=== PATIENT | male | born 1950 | race African-American/Black ===

== ENCOUNTER 2017-05-23 09:49 | Inpatient (IN) ==
[2017-05-23] MEDS ORDERED: DEXAMETHASONE 10 MG/1 ML VIAL ONE (10:12)
[2017-05-23] MEDS ORDERED: DEXAMETHASONE 4 MG/1 ML VIAL IV STA (10:18)
[2017-05-23] MEDS ORDERED: PHENYTOIN INJ 1,000 MG in SODIUM CHLORIDE 0.9% 100 ML IV STA (10:29)
[2017-05-23 10:32] LABS: Basophils # 0.1 10*3/uL (0.0-0.2); Basophils % 0.9 % (0.0-0.8); Eosinophils # 0.3 10*3/uL (0.0-0.87); Eosinophils % 4.4 % (0.00-10.9); Hematocrit 32.7 VOL% (42.0-52.0); Hemoglobin 10.9 GM/DL (14.0-18.0); Immature Granulocytes % 0.3 %; Immature Granulocytes Absolute 0.02 #; Lymphocytes # 1.3 10*3/uL (1.4-4.0); Lymphocytes % 19.9 % (21.2-54.2); Mean Corpuscular HGB Conc 33.3 GM/DL (32-36); Mean Corpuscular Hemoglobin 33 PG (27-34); Mean Corpuscular Volume 97.6 FL (87-102); Mean Platelet Volume 10.5 FL (9.6-12.0); Monocytes # 0.7 10*3/uL (0.11-0.8); Monocytes % 10.3 % (1.7-12.7); Neutrophils # 4.1 10*3/uL (1.4-7.4); Neutrophils % 64.2 % (38.7-73.9); Platelet Count 217 T/CUMM (130-400); Red Blood Count 3.35 MC/CUMM (3.8-5.5); Red Cell Distribution Width 14.2 % (9.3-17.3); White Blood Count 6.3 T/CUMM (4-12)
[2017-05-23 10:43] LABS: INR 1.4; PT Patient Result 14.4 SECS; Partial Thromboplastin Time 28.8 SECS (0-40)
[2017-05-23 11:07] LABS: Calcium 8.9 MG/DL (8.5-10.1); Osmolality,Calculated 280.4 MOS/KG (273-304); Potassium 4.4 MMOL/L (3.5-5.1)
[2017-05-23] MEDS ORDERED: ALUMINUM/MAGNES/SIMETH MAX STR 30 ML UDCUP PO PRN ×2 (12:13→14:09)
[2017-05-23] MEDS ORDERED: traMADol 50 MG TABLET PO PRN ×2 (12:13→14:09)
[2017-05-23] MEDS ORDERED: MYLANTA/LIDO VISC 2:1 300 ML BOTTLE SWISH/SPIT PRN ×2 (12:13→14:09)
[2017-05-23] MEDS ORDERED: ONDANSETRON 4 MG/2 ML VIAL IV PRN ×2 (12:13→14:09)
[2017-05-23] MEDS ORDERED: chlorproMAZINE 25 MG TABLET PO PRN ×2 (12:13→14:09)
[2017-05-23] MEDS ORDERED: ALPRAZolam 0.25 MG TABLET PO PRN ×2 (12:13→14:09)
[2017-05-23] MEDS ORDERED: LACTULOSE 20 GM/30 ML UDCUP PO PRN ×2 (12:13→14:09)
[2017-05-23] MEDS ORDERED: PROMETHAZINE INJ 25 MG in SODIUM CHLORIDE 0.9% 50 ML IV PRN ×2 (12:13→14:09)
[2017-05-23] MEDS ORDERED: TEMAZEPAM 7.5 MG CAPSULE PO PRN ×2 (12:13→14:09)
[2017-05-23] MEDS ORDERED: MAGNESIUM HYDROXIDE SUSP 30 ML UDCUP PO PRN ×2 (12:13→14:09)
[2017-05-23] MEDS ORDERED: MYLANTA/LIDO VISC 2:1 300 ML BOTTLE SWISH/SWAL PRN ×2 (12:13→14:09)
[2017-05-23] MEDS ORDERED: BENZTROPINE 2 MG/2 ML AMP IV PRN ×2 (12:13→14:09)
[2017-05-23] MEDS ORDERED: diphenhydrAMINE CAP 25 MG CAPSULE PO PRN ×2 (12:13→14:09)
[2017-05-23] MEDS ORDERED: chlorproMAZINE INJ 25 MG in SODIUM CHLORIDE 0.9% 100 ML IV PRN ×2 (12:13→14:09)
[2017-05-23] MEDS ORDERED: ACETAMINOPHEN 325 MG TABLET PO PRN ×2 (12:13→14:09)
[2017-05-23] MEDS ORDERED: chlorproMAZINE INJ 50 MG in SODIUM CHLORIDE 0.9% 100 ML IV PRN ×2 (12:13→14:09)
[2017-05-23] MEDS ORDERED: LOPERAMIDE 2 MG CAPSULE PO PRN ×4 (12:13→14:09)
[2017-05-23] MEDS ORDERED: guaiFENesin 200 MG/10 ML UDCUP PO PRN ×2 (12:13→14:09)
[2017-05-23] MEDS ORDERED: LORazepam 2 MG/1 ML VIAL ONE (12:28)
[2017-05-23] MEDS ORDERED: LORazepam 2 MG/1 ML VIAL IV STA (12:43)
[2017-05-23] MEDS ORDERED: INFLUENZA VIRUS VACCINE 0.5 ML SYRINGE IM ONE (14:12)
[2017-05-23 14:36] LABS: Bilirubin,Total 0.4 MG/DL (0.2-1.0); Calcium 9.2 MG/DL (8.5-10.1); Osmolality,Calculated 282.3 MOS/KG (273-304); Potassium 4.5 MMOL/L (3.5-5.1); Total Protein 7.3 G/DL (6.4-8.3)
[2017-05-23] MEDS: LORazepam 2 MG/1 ML VIAL IV PRN ×3 (14:52→20:12)
[2017-05-23 16:11] LABS: Apearance,Urine CLEAR (Clear); Bilirubin,Urine Negative (Negative); Blood, Urine Small mg/dL (Negative); Glucose,Urine (UA) Negative (Negative); Ketones,Urine 5 mg/dL (Negative); Nitrite,Urine Negative (Negative); Protein,Urine Negative; RBC,Urine 2 /HPF (0-4); Urine Color Straw (Yellow); Urine Specific Gravity 1.027 (1.001-1.035); Urine Urobilinogen < 2.0 EU/DL (0.2-1.0); WBC,Urine 1 /HPF (0-6)
[2017-05-23] MEDS: DEXAMETHASONE 4 MG/1 ML VIAL IV SCH ×2 (16:21→21:47)
[2017-05-23] MEDS ORDERED: WARFARIN 7.5 MG TABLET PO SCH (18:00)
[2017-05-23] MEDS: PHENYTOIN 100 MG/2 ML VIAL IV SCH (20:15)
[2017-05-23] MEDS ORDERED: METOPROLOL TARTRATE 50 MG TABLET PO SCH (21:00)
[2017-05-24] MEDS: PHENYTOIN 100 MG/2 ML VIAL IV SCH (04:56)
[2017-05-24] MEDS: DEXAMETHASONE 4 MG/1 ML VIAL IV SCH ×4 (04:56→22:46)
[2017-05-24] MEDS: LORazepam 2 MG/1 ML VIAL IV PRN ×4 (07:08→22:35)
[2017-05-24] MEDS ORDERED: NON-FORMULARY MEDICATION (Omeprazole [Prilosec] 20 MG) PO SCH (09:00)
[2017-05-24] MEDS ORDERED: LISINOPRIL 20 MG TABLET PO SCH (09:00)
[2017-05-24] MEDS ORDERED: levETIRAcetam 500 MG TABLET PO SCH (09:00)
[2017-05-24] MEDS ORDERED: hydroCHLOROthiazide 25 MG TABLET PO SCH (09:00)
[2017-05-24] MEDS ORDERED: HALOPERIDOL 5 MG/ML AMP IM ONE (09:58)
[2017-05-24] MEDS: METOPROLOL TARTRATE 50 MG TABLET PO SCH ×2 (10:10→22:43)
[2017-05-24] MEDS: FERROUS SULFATE 325 MG TABLET PO SCH (10:49)
[2017-05-24] MEDS: VITAMIN E 1000 UNIT CAPSULE PO SCH (10:49)
[2017-05-24] MEDS: ATORVASTATIN 40 MG TABLET PO SCH (10:49)
[2017-05-24] MEDS: hydroCHLOROthiazide 25 MG TABLET PO SCH (10:49)
[2017-05-24] MEDS: LISINOPRIL 20 MG TABLET PO SCH (10:49)
[2017-05-24] MEDS: MULTIVITAMIN (CENTRUM) TABLET PO SCH (10:49)
[2017-05-24] MEDS: CYANOCOBALAMIN 500 MCG TABLET PO SCH (10:49)
[2017-05-24] MEDS: PANTOPRAZOLE 20 MG TABLET PO SCH (10:49)
[2017-05-24] MEDS: levETIRAcetam INJ 500 MG in SODIUM CHLORIDE 0.9% 50 ML IV SCH ×2 (10:49→22:37)
[2017-05-24] MEDS: WARFARIN 5 MG TABLET PO SCH (22:41)
[2017-05-25] MEDS: DEXAMETHASONE 4 MG/1 ML VIAL IV SCH ×3 (10:06→20:04)
[2017-05-25] MEDS: METOPROLOL TARTRATE 50 MG TABLET PO SCH ×2 (10:07→22:18)
[2017-05-25] MEDS: LORazepam 2 MG/1 ML VIAL IV PRN ×3 (10:07→17:45)
[2017-05-25] MEDS: hydroCHLOROthiazide 25 MG TABLET PO SCH (12:52)
[2017-05-25] MEDS: LISINOPRIL 20 MG TABLET PO SCH (12:52)
[2017-05-25] MEDS: CYANOCOBALAMIN 500 MCG TABLET PO SCH (13:09)
[2017-05-25] MEDS: levETIRAcetam INJ 500 MG in SODIUM CHLORIDE 0.9% 50 ML IV SCH ×2 (13:10→22:23)
[2017-05-25] MEDS: FERROUS SULFATE 325 MG TABLET PO SCH (13:10)
[2017-05-25] MEDS: PANTOPRAZOLE 20 MG TABLET PO SCH (13:10)
[2017-05-25] MEDS: MULTIVITAMIN (CENTRUM) TABLET PO SCH (13:10)
[2017-05-25] MEDS: NICOTINE 21 MG/24 HR PATCH TRANSDERM SCH (13:10)
[2017-05-25] MEDS: ATORVASTATIN 40 MG TABLET PO SCH (13:10)
[2017-05-25] MEDS: VITAMIN E 1000 UNIT CAPSULE PO SCH (13:11)
[2017-05-25] MEDS: WARFARIN 5 MG TABLET PO SCH (20:02)
[2017-05-25] MEDS ORDERED: HALOPERIDOL 5 MG/ML AMP IV ONE (20:22)
[2017-05-26] MEDS: DEXAMETHASONE 4 MG/1 ML VIAL IV SCH ×4 (01:11→22:22)
[2017-05-26] MEDS: LORazepam 2 MG/1 ML VIAL IV PRN ×5 (03:32→22:21)
[2017-05-26 06:03] LABS: Basophils % 0.1 % (0.0-0.8); Eosinophils % 0.1 % (0.00-10.9); Hematocrit 33.8 VOL% (42.0-52.0); Hemoglobin 11.5 GM/DL (14.0-18.0); Immature Granulocytes % 0.5 %; Immature Granulocytes Absolute 0.07 #; Lymphocytes # 0.4 10*3/uL (1.4-4.0); Mean Corpuscular Hemoglobin 33 PG (27-34); Mean Corpuscular Volume 95.8 FL (87-102); Mean Platelet Volume 11.4 FL (9.6-12.0); Monocytes # 0.3 10*3/uL (0.11-0.8); Monocytes % 2.1 % (1.7-12.7); Neutrophils # 12.4 10*3/uL (1.4-7.4); Neutrophils % 94.2 % (38.7-73.9); Platelet Count 224 T/CUMM (130-400); Red Blood Count 3.53 MC/CUMM (3.8-5.5); Red Cell Distribution Width 13.8 % (9.3-17.3); White Blood Count 13.1 T/CUMM (4-12)
[2017-05-26 06:41] LABS: Hypochromasia 1+; Lymphocytes 2 % (20-55); Segmented Neutrophils 97 % (50-85); Total Cells Counted 100
[2017-05-26 06:42] LABS: Microcytosis Slight
[2017-05-26] MEDS ORDERED: ZIPRASIDONE 20 MG/1 ML VIAL IM PRN (07:51)
[2017-05-26] MEDS: LISINOPRIL 20 MG TABLET PO SCH (09:28)
[2017-05-26] MEDS: PANTOPRAZOLE 20 MG TABLET PO SCH (09:28)
[2017-05-26] MEDS: METOPROLOL TARTRATE 50 MG TABLET PO SCH ×2 (09:29→22:21)
[2017-05-26] MEDS: hydroCHLOROthiazide 25 MG TABLET PO SCH (09:30)
[2017-05-26] MEDS: levETIRAcetam INJ 500 MG in SODIUM CHLORIDE 0.9% 50 ML IV SCH ×2 (11:23→22:27)
[2017-05-26] MEDS: NICOTINE 21 MG/24 HR PATCH TRANSDERM SCH (11:24)
[2017-05-26] MEDS: MULTIVITAMIN (CENTRUM) TABLET PO SCH (15:30)
[2017-05-26] MEDS: CYANOCOBALAMIN 500 MCG TABLET PO SCH (15:30)
[2017-05-26] MEDS: VITAMIN E 1000 UNIT CAPSULE PO SCH (15:30)
[2017-05-26] MEDS: FERROUS SULFATE 325 MG TABLET PO SCH (15:30)
[2017-05-26] MEDS: WARFARIN 5 MG TABLET PO SCH (18:32)
[2017-05-27] MEDS: LORazepam 2 MG/1 ML VIAL IV PRN ×5 (00:18→17:08)
[2017-05-27] MEDS: DEXAMETHASONE 4 MG/1 ML VIAL IV SCH ×4 (04:01→23:05)
[2017-05-27 06:37] LABS: INR 3.5
[2017-05-27 06:50] LABS: PT Patient Result 35.3 SECS
[2017-05-27] MEDS: LISINOPRIL 20 MG TABLET PO SCH (09:46)
[2017-05-27] MEDS: PANTOPRAZOLE 20 MG TABLET PO SCH (09:47)
[2017-05-27] MEDS: METOPROLOL TARTRATE 50 MG TABLET PO SCH ×2 (09:48→23:09)
[2017-05-27] MEDS: hydroCHLOROthiazide 25 MG TABLET PO SCH (09:49)
[2017-05-27] MEDS: levETIRAcetam INJ 500 MG in SODIUM CHLORIDE 0.9% 50 ML IV SCH ×2 (10:51→23:05)
[2017-05-27] MEDS ORDERED: HALOPERIDOL 5 MG/ML AMP IM STA (11:57)
[2017-05-27] MEDS ORDERED: HALOPERIDOL 5 MG/ML AMP IM PRN (11:59)
[2017-05-27] MEDS: FERROUS SULFATE 325 MG TABLET PO SCH (17:01)
[2017-05-27] MEDS: CYANOCOBALAMIN 500 MCG TABLET PO SCH (17:01)
[2017-05-27] MEDS: NICOTINE 21 MG/24 HR PATCH TRANSDERM SCH (17:02)
[2017-05-27] MEDS: MULTIVITAMIN (CENTRUM) TABLET PO SCH (17:02)
[2017-05-27] MEDS: VITAMIN E 1000 UNIT CAPSULE PO SCH (17:12)
[2017-05-28] MEDS: DEXAMETHASONE 4 MG/1 ML VIAL IV SCH ×4 (06:17→21:25)
[2017-05-28] MEDS: LISINOPRIL 20 MG TABLET PO SCH (13:11)
[2017-05-28] MEDS: FERROUS SULFATE 325 MG TABLET PO SCH (13:11)
[2017-05-28] MEDS: CYANOCOBALAMIN 500 MCG TABLET PO SCH (13:11)
[2017-05-28] MEDS: METOPROLOL TARTRATE 50 MG TABLET PO SCH ×2 (13:12→21:25)
[2017-05-28] MEDS: hydroCHLOROthiazide 25 MG TABLET PO SCH (13:12)
[2017-05-28] MEDS: NICOTINE 21 MG/24 HR PATCH TRANSDERM SCH (13:12)
[2017-05-28] MEDS: PANTOPRAZOLE 20 MG TABLET PO SCH (13:12)
[2017-05-28] MEDS: MULTIVITAMIN (CENTRUM) TABLET PO SCH (13:12)
[2017-05-28] MEDS: levETIRAcetam INJ 500 MG in SODIUM CHLORIDE 0.9% 50 ML IV SCH ×2 (13:13→23:46)
[2017-05-28] MEDS: VITAMIN E 1000 UNIT CAPSULE PO SCH (13:20)
[2017-05-29 02:48] LABS: INR 2.2
[2017-05-29 02:54] LABS: PT Patient Result 22.7 SECS
[2017-05-29 02:56] LABS: Basophils % 0.1 % (0.0-0.8); Hematocrit 37.4 VOL% (42.0-52.0); Hemoglobin 12.7 GM/DL (14.0-18.0); Immature Granulocytes % 0.7 %; Immature Granulocytes Absolute 0.06 #; Lymphocytes # 0.8 10*3/uL (1.4-4.0); Lymphocytes % 9.4 % (21.2-54.2); Mean Corpuscular Hemoglobin 32 PG (27-34); Mean Corpuscular Volume 95.2 FL (87-102); Mean Platelet Volume 12.1 FL (9.6-12.0); Monocytes # 0.5 10*3/uL (0.11-0.8); Monocytes % 5.9 % (1.7-12.7); Neutrophils # 7.4 10*3/uL (1.4-7.4); Neutrophils % 83.9 % (38.7-73.9); Platelet Count 219 T/CUMM (130-400); Red Blood Count 3.93 MC/CUMM (3.8-5.5); Red Cell Distribution Width 13.3 % (9.3-17.3); White Blood Count 8.8 T/CUMM (4-12)
[2017-05-29 03:04] LABS: Calcium 8.9 MG/DL (8.5-10.1)
[2017-05-29 03:05] LABS: Magnesium 2.3 MG/DL (1.8-2.4); Potassium 4.1 MMOL/L (3.5-5.1)
[2017-05-29] MEDS: DEXAMETHASONE 4 MG/1 ML VIAL IV SCH (04:20)
[2017-05-29] MEDS: MULTIVITAMIN (CENTRUM) TABLET PO SCH (09:03)
[2017-05-29] MEDS: CYANOCOBALAMIN 500 MCG TABLET PO SCH (09:04)
[2017-05-29] MEDS: VITAMIN E 1000 UNIT CAPSULE PO SCH (09:04)
[2017-05-29] MEDS: FERROUS SULFATE 325 MG TABLET PO SCH (09:04)
[2017-05-29] MEDS: PANTOPRAZOLE 20 MG TABLET PO SCH (09:06)
[2017-05-29] MEDS: METOPROLOL TARTRATE 50 MG TABLET PO SCH ×2 (09:06→21:33)
[2017-05-29] MEDS: hydroCHLOROthiazide 25 MG TABLET PO SCH (09:06)
[2017-05-29] MEDS: levETIRAcetam 500 MG TABLET PO SCH ×2 (09:06→21:33)
[2017-05-29] MEDS: DEXAMETHASONE 4 MG TABLET PO SCH ×3 (09:06→21:33)
[2017-05-29] MEDS: LISINOPRIL 20 MG TABLET PO SCH (09:07)
[2017-05-29] MEDS: NICOTINE 21 MG/24 HR PATCH TRANSDERM SCH (09:07)
[2017-05-30] MEDS: METOPROLOL TARTRATE 50 MG TABLET PO SCH (08:52)
[2017-05-30] MEDS: PANTOPRAZOLE 20 MG TABLET PO SCH (08:52)
[2017-05-30] MEDS: LISINOPRIL 20 MG TABLET PO SCH (08:52)
[2017-05-30] MEDS: levETIRAcetam 500 MG TABLET PO SCH (08:52)
[2017-05-30] MEDS: hydroCHLOROthiazide 25 MG TABLET PO SCH (08:52)
[2017-05-30] MEDS: DEXAMETHASONE 4 MG TABLET PO SCH (08:52)
[2017-05-30] MEDS: NICOTINE 21 MG/24 HR PATCH TRANSDERM SCH (08:53)
[2017-05-30 09:35] VITALS: BP 135/67
== END 2017-05-30 09:55 | disposition home health service (06) | DRG 55 ==
LOC: EDUNIT# → EDBD → N.ED 09:49 → N.EDINP 12:13 → N.4E 13:50
PROVIDERS: ADMIT Specialist; ATTEND Specialist

== ENCOUNTER 2017-07-12 09:25 | Inpatient (IN) ==
[2017-07-12 10:36] LABS: Basophils % 0.2 % (0.0-0.8); Eosinophils # 0.1 10*3/uL (0.0-0.87); Eosinophils % 0.6 % (0.00-10.9); Hematocrit 34.7 VOL% (42.0-52.0); Hemoglobin 11.3 GM/DL (14.0-18.0); Immature Granulocytes % 1.4 %; Immature Granulocytes Absolute 0.17 #; Lymphocytes # 1.7 10*3/uL (1.4-4.0); Lymphocytes % 13.2 % (21.2-54.2); Mean Corpuscular HGB Conc 32.6 GM/DL (32-36); Mean Corpuscular Hemoglobin 32 PG (27-34); Mean Corpuscular Volume 98.9 FL (87-102); Monocytes # 0.9 10*3/uL (0.11-0.8); Neutrophils # 9.8 10*3/uL (1.4-7.4); Neutrophils % 77.6 % (38.7-73.9); Platelet Count 216 T/CUMM (130-400); Red Blood Count 3.51 MC/CUMM (3.8-5.5); Red Cell Distribution Width 14.6 % (9.3-17.3); White Blood Count 12.6 T/CUMM (4-12)
[2017-07-12] MEDS ORDERED: cefTRIAXone 1,000 MG in SODIUM CHLORIDE 0.9% 100 ML IV STA (10:39)
[2017-07-12] MEDS ORDERED: methylPREDNISolone SOD SUC 125 MG/2 ML VIAL IV STA (10:39)
[2017-07-12] MEDS ORDERED: methylPREDNISolone SOD SUC 125 MG/2 ML VIAL ONE (10:54)
[2017-07-12 10:57] LABS: Lactic Acid 0.9 MMOL/L (0.4-2.0)
[2017-07-12 11:00] LABS: Alanine Aminotransferase 22 U/L (16-61); Albumin 3.7 G/DL (3.4-5.0); Alkaline Phosphatase 77 U/L (45-117); Aspartate Amino Transferase 13 U/L (0-37); Bilirubin,Total < 0.39 MG/DL (0.2-1.0); Blood Urea Nitrogen 33 MG/DL (7-18); Calcium 8.7 MG/DL (8.5-10.1); Glucose 86 MG/DL (74-106); Osmolality,Calculated 284.4 MOS/KG (273-304); Potassium 4.6 MMOL/L (3.5-5.1); Sodium 140 MMOL/L (136-145); Total Protein 7.1 G/DL (6.4-8.3); Troponin I Only < 0.015 NG/ML (0.00-0.045)
[2017-07-12] MEDS ORDERED: ALBUTEROL 2.5 MG/3 ML NEB RESP TX SCH (11:00)
[2017-07-12] MEDS ORDERED: cefTRIAXone 1,000 MG VIAL ONE (11:14)
[2017-07-12] MEDS ORDERED: ALBUTEROL 2.5 MG/3 ML NEB RESP TX ONE (11:25)
[2017-07-12 12:15] LABS: PT Patient Result 89.7 SECS
[2017-07-12 12:17] LABS: INR 9.2
[2017-07-12] MEDS ORDERED: PHYTONADIONE 5 MG TABLET PO ONE (13:48)
[2017-07-12] MEDS ORDERED: ONDANSETRON 4 MG/2 ML VIAL IV PRN (16:31)
[2017-07-12] MEDS ORDERED: MAGNESIUM HYDROXIDE SUSP 30 ML UDCUP PO PRN (16:31)
[2017-07-12] MEDS ORDERED: traMADol 50 MG TABLET PO PRN (16:31)
[2017-07-12] MEDS ORDERED: LOPERAMIDE 2 MG CAPSULE PO PRN ×2 (16:31)
[2017-07-12] MEDS ORDERED: ACETAMINOPHEN 325 MG TABLET PO PRN (16:31)
[2017-07-12] MEDS ORDERED: diphenhydrAMINE CAP 25 MG CAPSULE PO PRN (16:31)
[2017-07-12] MEDS ORDERED: ALUMINUM/MAGNES/SIMETH MAX STR 30 ML UDCUP PO PRN (16:31)
[2017-07-12] MEDS ORDERED: LACTULOSE 20 GM/30 ML UDCUP PO PRN (16:31)
[2017-07-12] MEDS ORDERED: MYLANTA/LIDO VISC 2:1 300 ML BOTTLE SWISH/SWAL PRN (16:31)
[2017-07-12] MEDS ORDERED: ALBUTEROL/IPRATROPIUM 3 ML NEB RESP TX PRN (16:31)
[2017-07-12] MEDS ORDERED: guaiFENesin 200 MG/10 ML UDCUP PO PRN (16:31)
[2017-07-12] MEDS ORDERED: SODIUM CHLORIDE 0.9% 1,000 ML IV PRN (16:31)
[2017-07-12] MEDS ORDERED: ALPRAZolam 0.25 MG TABLET PO PRN (16:31)
[2017-07-12] MEDS ORDERED: TEMAZEPAM 7.5 MG CAPSULE PO PRN (16:31)
[2017-07-12] MEDS ORDERED: MYLANTA/LIDO VISC 2:1 300 ML BOTTLE SWISH/SPIT PRN (16:31)
[2017-07-12 17:42] LABS: Basophils % 0.1 % (0.0-0.8); Hemoglobin 10.9 GM/DL (14.0-18.0); Immature Granulocytes % 1.3 %; Immature Granulocytes Absolute 0.18 #; Lymphocytes # 0.5 10*3/uL (1.4-4.0); Lymphocytes % 3.1 % (21.2-54.2); Mean Corpuscular HGB Conc 32.1 GM/DL (32-36); Mean Corpuscular Hemoglobin 32 PG (27-34); Mean Corpuscular Volume 99.1 FL (87-102); Mean Platelet Volume 10.4 FL (9.6-12.0); Monocytes # 0.4 10*3/uL (0.11-0.8); Monocytes % 2.7 % (1.7-12.7); Neutrophils # 13.3 10*3/uL (1.4-7.4); Neutrophils % 92.8 % (38.7-73.9); Platelet Count 227 T/CUMM (130-400); Red Blood Count 3.43 MC/CUMM (3.8-5.5); Red Cell Distribution Width 14.8 % (9.3-17.3); White Blood Count 14.3 T/CUMM (4-12)
[2017-07-12 18:16] LABS: Uric Acid 7.7 MG/DL (3.5-7.2)
[2017-07-12 18:20] LABS: Albumin 3.8 G/DL (3.4-5.0); Bilirubin,Total 0.6 MG/DL (0.2-1.0); Calcium 8.9 MG/DL (8.5-10.1); Osmolality,Calculated 290.4 MOS/KG (273-304); Potassium 4.5 MMOL/L (3.5-5.1); Total Protein 7.4 G/DL (6.4-8.3)
[2017-07-12 18:23] LABS: PT Patient Result 65.2 SECS
[2017-07-12 18:24] LABS: INR 6.6
[2017-07-12] MEDS: SODIUM CHLORIDE 0.9% 1,000 ML IV SCH (18:34)
[2017-07-12] MEDS: methylPREDNISolone SOD SUC 40 MG/1 ML VIAL IV SCH (18:35)
[2017-07-12] MEDS: AZITHROMYCIN INJ 500 MG in SODIUM CHLORIDE 0.9% 250 ML IV SCH (18:36)
[2017-07-12 19:13] LABS: Band Neutrophils 4 % (0-10); Lymphocytes 4 % (20-55); Myelocytes 1 %; Platelet Estimate Normal; Segmented Neutrophils 86 % (50-85); Total Cells Counted 100
[2017-07-13] MEDS: methylPREDNISolone SOD SUC 40 MG/1 ML VIAL IV SCH ×3 (01:18→18:14)
[2017-07-13 02:10] LABS: Apearance,Urine Slightly Hazy (Clear); Bacteria,Urine Occasional /HPF (Few); Bilirubin,Urine Negative (Negative); Blood, Urine Negative (Negative); Glucose,Urine (UA) 50 mg/dL (Negative); Hyaline Casts,Urine 1 /LPF (0-3); Ketones,Urine Negative (Negative); Nitrite,Urine Negative (Negative); Protein,Urine Negative; RBC,Urine <1 /HPF (0-4); Squamous Epithelial Cell,Urine Occasional /HPF (0-10); Urine Color Yellow (Yellow); Urine Specific Gravity 1.018 (1.001-1.035); Urine Urobilinogen < 2.0 EU/DL (0.2-1.0); WBC,Urine 11 /HPF (0-6)
[2017-07-13 07:34] LABS: Basophils % 0.1 % (0.0-0.8); Hematocrit 31.6 VOL% (42.0-52.0); Hemoglobin 10.3 GM/DL (14.0-18.0); Immature Granulocytes % 1.1 %; Immature Granulocytes Absolute 0.17 #; Lymphocytes # 0.8 10*3/uL (1.4-4.0); Lymphocytes % 5.3 % (21.2-54.2); Mean Corpuscular HGB Conc 32.6 GM/DL (32-36); Mean Corpuscular Hemoglobin 32 PG (27-34); Mean Corpuscular Volume 98.4 FL (87-102); Mean Platelet Volume 10.4 FL (9.6-12.0); Monocytes # 0.5 10*3/uL (0.11-0.8); Monocytes % 3.3 % (1.7-12.7); Neutrophils # 13.6 10*3/uL (1.4-7.4); Neutrophils % 90.2 % (38.7-73.9); Platelet Count 214 T/CUMM (130-400); Red Blood Count 3.21 MC/CUMM (3.8-5.5); Red Cell Distribution Width 14.7 % (9.3-17.3); White Blood Count 15.1 T/CUMM (4-12)
[2017-07-13 08:00] LABS: INR 2.1
[2017-07-13 08:01] LABS: PT Patient Result 21.8 SECS
[2017-07-13] MEDS ORDERED: ALBUTEROL 2.5 MG/3 ML NEB RESP TX PRN (08:13)
[2017-07-13] MEDS: cefTRIAXone 1,000 MG in SYRINGE 1 EACH IV SCH (09:02)
[2017-07-13] MEDS: levETIRAcetam 500 MG TABLET PO SCH ×2 (09:04→21:30)
[2017-07-13] MEDS: METOPROLOL TARTRATE 50 MG TABLET PO SCH ×2 (09:04→21:30)
[2017-07-13] MEDS: PANTOPRAZOLE 40 MG VIAL IV SCH (09:06)
[2017-07-13] MEDS ORDERED: MULTIVITAMIN (CENTRUM) TABLET PO SCH (11:00)
[2017-07-13] MEDS ORDERED: CYANOCOBALAMIN 500 MCG TABLET PO SCH (11:00)
[2017-07-13] MEDS ORDERED: PANTOPRAZOLE 40 MG TABLET PO SCH (11:00)
[2017-07-13] MEDS ORDERED: VITAMIN E 400 UNIT CAPSULE PO SCH (11:00)
[2017-07-13] MEDS ORDERED: hydroCHLOROthiazide 25 MG TABLET PO SCH (11:00)
[2017-07-13] MEDS ORDERED: LISINOPRIL 20 MG TABLET PO SCH (11:00)
[2017-07-13] MEDS: SODIUM CHLORIDE 0.9% 1,000 ML IV SCH (11:32)
[2017-07-13] MEDS ORDERED: WARFARIN 1 MG TABLET PO SCH (18:00)
[2017-07-13] MEDS: AZITHROMYCIN INJ 500 MG in SODIUM CHLORIDE 0.9% 250 ML IV SCH (18:14)
[2017-07-14] MEDS: methylPREDNISolone SOD SUC 40 MG/1 ML VIAL IV SCH ×2 (00:16→08:55)
[2017-07-14] MEDS: SODIUM CHLORIDE 0.9% 1,000 ML IV SCH (02:06)
[2017-07-14 05:08] LABS: Basophils % 0.1 % (0.0-0.8); Hematocrit 30.8 VOL% (42.0-52.0); Hemoglobin 9.9 GM/DL (14.0-18.0); Immature Granulocytes % 1.1 %; Immature Granulocytes Absolute 0.17 #; Lymphocytes # 0.7 10*3/uL (1.4-4.0); Lymphocytes % 4.4 % (21.2-54.2); Mean Corpuscular HGB Conc 32.1 GM/DL (32-36); Mean Corpuscular Hemoglobin 32 PG (27-34); Mean Corpuscular Volume 98.1 FL (87-102); Mean Platelet Volume 10.1 FL (9.6-12.0); Monocytes # 0.5 10*3/uL (0.11-0.8); Neutrophils % 91.4 % (38.7-73.9); Platelet Count 211 T/CUMM (130-400); Red Blood Count 3.14 MC/CUMM (3.8-5.5); Red Cell Distribution Width 14.8 % (9.3-17.3); White Blood Count 15.3 T/CUMM (4-12)
[2017-07-14 05:22] LABS: INR 1.3
[2017-07-14 05:37] LABS: Band Neutrophils 3 % (0-10); Lymphocytes 5 % (20-55); Myelocytes 1 %; Platelet Estimate Normal; Segmented Neutrophils 89 % (50-85); Total Cells Counted 100
[2017-07-14 05:38] LABS: Burr Cells Few
[2017-07-14 05:46] LABS: Albumin 2.9 G/DL (3.4-5.0); Bilirubin,Total 0.5 MG/DL (0.2-1.0); Calcium 8.3 MG/DL (8.5-10.1); Osmolality,Calculated 287.1 MOS/KG (273-304); Potassium 4.7 MMOL/L (3.5-5.1); Total Protein 6.2 G/DL (6.4-8.3)
[2017-07-14] MEDS: levETIRAcetam 500 MG TABLET PO SCH (08:55)
[2017-07-14] MEDS: METOPROLOL TARTRATE 50 MG TABLET PO SCH (08:55)
[2017-07-14] MEDS: PANTOPRAZOLE 40 MG VIAL IV SCH (08:56)
[2017-07-14] MEDS: cefTRIAXone 1,000 MG in SYRINGE 1 EACH IV SCH (08:56)
[2017-07-14] MEDS ORDERED: ENOXAPARIN 60 MG/0.6 ML SYRINGE SUBCUT ONE (09:00)
[2017-07-14 10:05] VITALS: BP 164/77
== END 2017-07-14 10:24 | disposition home or self-care (01) | DRG 202 ==
LOC: N.ED 09:25 → N.EDINP 13:49 → N.4E 16:24
PROVIDERS: ADMIT Specialist; ATTEND Specialist

== ENCOUNTER 2018-03-29 14:09 | Inpatient (IN) ==
[2018-03-29 15:32] LABS: Basophils % 0.2 % (0.0-0.8); Eosinophils % 0.1 % (0.00-10.9); Hematocrit 34.8 VOL% (42.0-52.0); Hemoglobin 11.7 GM/DL (14.0-18.0); Immature Granulocytes % 2.4 %; Immature Granulocytes Absolute 0.24 #; Lymphocytes # 0.8 10*3/uL (1.4-4.0); Lymphocytes % 7.5 % (21.2-54.2); Mean Corpuscular HGB Conc 33.6 GM/DL (32-36); Mean Corpuscular Hemoglobin 34 PG (27-34); Mean Corpuscular Volume 100.9 FL (87-102); Mean Platelet Volume 10.5 FL (9.6-12.0); Monocytes # 0.4 10*3/uL (0.11-0.8); Monocytes % 3.9 % (1.7-12.7); Neutrophils # 8.7 10*3/uL (1.4-7.4); Neutrophils % 85.9 % (38.7-73.9); Platelet Count 214 T/CUMM (130-400); Red Blood Count 3.45 MC/CUMM (3.8-5.5); Red Cell Distribution Width 14.6 % (9.3-17.3); White Blood Count 10.1 T/CUMM (4-12)
[2018-03-29 15:33] LABS: INR 1.1; PT Patient Result 11.6 SECS
[2018-03-29 15:52] LABS: Alanine Aminotransferase 24 U/L (16-61); Albumin 3.8 G/DL (3.4-5.0); Alkaline Phosphatase 73 U/L (45-117); Aspartate Amino Transferase 28 U/L (0-37); Bilirubin,Total < 0.39 MG/DL (0.2-1.0); Blood Urea Nitrogen 19 MG/DL (7-18); CKMB % 5.5 %; Calcium 8.8 MG/DL (8.5-10.1); Glucose 107 MG/DL (74-106); Osmolality,Calculated 276.7 MOS/KG (273-304); Potassium 4.4 MMOL/L (3.5-5.1); Sodium 138 MMOL/L (136-145); Total Protein 6.9 G/DL (6.4-8.3)
[2018-03-29 16:52] LABS: Apearance,Urine CLEAR (Clear); Bilirubin,Urine Negative (Negative); Blood, Urine Negative (Negative); Glucose,Urine (UA) Negative (Negative); Ketones,Urine Negative (Negative); Nitrite,Urine Negative (Negative); Protein,Urine Negative; RBC,Urine 1 /HPF (0-4); Urine Color Yellow (Yellow); Urine Specific Gravity 1.009 (1.001-1.035); Urine Urobilinogen < 2.0 EU/DL (0.2-1.0); WBC,Urine 8 /HPF (0-6)
[2018-03-29] MEDS ORDERED: LABETALOL 20 MG/4 ML SYRINGE IV PRN (17:24)
[2018-03-29] MEDS ORDERED: ONDANSETRON 4 MG/2 ML VIAL IV PRN (17:24)
[2018-03-29] MEDS ORDERED: LORazepam 2 MG/1 ML VIAL IV PRN (17:32)
[2018-03-29] MEDS: ALBUTEROL/IPRATROPIUM 3 ML NEB RESP TX SCH (19:31)
[2018-03-29 20:01] LABS: Barbiturates Screen,Urine Negative (Negative); Benzodiazepines Screen,Urine Negative (Negative); Cannabinoid Screen,Urine Positive (Negative); Opiate Screen,Urine Positive (Negative); Phencyclidine Screen,Urine Negative (Negative)
[2018-03-29] MEDS: levETIRAcetam 500 MG TABLET PO SCH (20:57)
[2018-03-29] MEDS: ENOXAPARIN 80 MG/0.8 ML SYRINGE SUBCUT SCH (20:58)
[2018-03-30] MEDS: ALBUTEROL/IPRATROPIUM 3 ML NEB RESP TX SCH ×4 (00:23→19:46)
[2018-03-30 05:36] LABS: Basophils % 0.2 % (0.0-0.8); Eosinophils % 0.5 % (0.00-10.9); Hematocrit 33.9 VOL% (42.0-52.0); Hemoglobin 10.9 GM/DL (14.0-18.0); Immature Granulocytes % 2.6 %; Immature Granulocytes Absolute 0.22 #; Lymphocytes # 1.6 10*3/uL (1.4-4.0); Lymphocytes % 18.4 % (21.2-54.2); Mean Corpuscular HGB Conc 32.2 GM/DL (32-36); Mean Corpuscular Hemoglobin 33 PG (27-34); Mean Corpuscular Volume 101.8 FL (87-102); Mean Platelet Volume 10.9 FL (9.6-12.0); Monocytes # 0.5 10*3/uL (0.11-0.8); Neutrophils # 6.1 10*3/uL (1.4-7.4); Neutrophils % 72.3 % (38.7-73.9); Platelet Count 232 T/CUMM (130-400); Red Blood Count 3.33 MC/CUMM (3.8-5.5); Red Cell Distribution Width 14.6 % (9.3-17.3); White Blood Count 8.5 T/CUMM (4-12)
[2018-03-30 05:43] LABS: INR 1.2; PT Patient Result 12.7 SECS
[2018-03-30 06:16] LABS: Albumin 3.4 G/DL (3.4-5.0); Bilirubin,Total 0.5 MG/DL (0.2-1.0); Calcium 8.7 MG/DL (8.5-10.1); Osmolality,Calculated 282.3 MOS/KG (273-304); Potassium 3.7 MMOL/L (3.5-5.1); Risk Ratio 4.98; Total Protein 6.5 G/DL (6.4-8.3); VLDL CHOLESTEROL 43.4 MG/DL
[2018-03-30] MEDS ORDERED: DEXAMETHASONE 4 MG TABLET PO SCH (09:00)
[2018-03-30] MEDS ORDERED: PANTOPRAZOLE 40 MG TABLET PO SCH (09:00)
[2018-03-30] MEDS: FOLIC ACID 1 MG TABLET PO SCH (11:04)
[2018-03-30] MEDS: THIAMINE 100 MG TABLET PO SCH (11:04)
[2018-03-30] MEDS: FERROUS SULFATE 325 MG TABLET PO SCH (11:06)
[2018-03-30] MEDS: PANTOPRAZOLE 40 MG TABLET PO SCH (11:06)
[2018-03-30] MEDS: MULTIVITAMIN (CENTRUM) TABLET PO SCH (11:06)
[2018-03-30] MEDS: levETIRAcetam 500 MG TABLET PO SCH ×2 (11:06→21:42)
[2018-03-30] MEDS: ENOXAPARIN 80 MG/0.8 ML SYRINGE SUBCUT SCH ×2 (11:08→21:42)
[2018-03-30] MEDS ORDERED: WARFARIN 5 MG TABLET PO ONE (13:14)
[2018-03-30] MEDS: METOPROLOL TARTRATE 25 MG TABLET PO SCH (14:08)
[2018-03-30] MEDS: ASPIRIN EC 81 MG TABLET PO SCH (14:08)
[2018-03-30] MEDS: amLODIPine 5 MG TABLET PO SCH (18:09)
[2018-03-30] MEDS: WARFARIN 5 MG TABLET PO SCH (18:09)
[2018-03-30] MEDS: ROSUVASTATIN 10 MG TABLET PO SCH (21:42)
[2018-03-31] MEDS: ALBUTEROL/IPRATROPIUM 3 ML NEB RESP TX SCH ×4 (00:30→19:16)
[2018-03-31 05:03] LABS: INR 1.1; PT Patient Result 11.9 SECS
[2018-03-31] MEDS: ENOXAPARIN 80 MG/0.8 ML SYRINGE SUBCUT SCH ×2 (08:43→20:41)
[2018-03-31] MEDS: amLODIPine 5 MG TABLET PO SCH (08:45)
[2018-03-31] MEDS: PANTOPRAZOLE 40 MG TABLET PO SCH (08:46)
[2018-03-31] MEDS: levETIRAcetam 500 MG TABLET PO SCH ×2 (08:46→20:41)
[2018-03-31] MEDS: MULTIVITAMIN (CENTRUM) TABLET PO SCH (08:46)
[2018-03-31] MEDS: THIAMINE 100 MG TABLET PO SCH (08:46)
[2018-03-31] MEDS: ASPIRIN EC 81 MG TABLET PO SCH (08:46)
[2018-03-31] MEDS: METOPROLOL TARTRATE 25 MG TABLET PO SCH (08:47)
[2018-03-31] MEDS: FERROUS SULFATE 325 MG TABLET PO SCH (08:49)
[2018-03-31] MEDS: ISOSORBIDE MONONITRATE 30 MG TABLET PO SCH (08:49)
[2018-03-31] MEDS: DEXAMETHASONE 4 MG TABLET PO SCH ×2 (09:06→20:41)
[2018-03-31] MEDS: FOLIC ACID 1 MG TABLET PO SCH (09:10)
[2018-03-31] MEDS: WARFARIN 5 MG TABLET PO SCH (18:21)
[2018-03-31] MEDS: ROSUVASTATIN 10 MG TABLET PO SCH (20:41)
[2018-04-01] MEDS: ALBUTEROL/IPRATROPIUM 3 ML NEB RESP TX SCH ×4 (02:08→19:06)
[2018-04-01 06:53] LABS: INR 1.3; PT Patient Result 13.8 SECS
[2018-04-01 07:01] LABS: Calcium 8.9 MG/DL (8.5-10.1); Osmolality,Calculated 280.5 MOS/KG (273-304); Potassium 4.5 MMOL/L (3.5-5.1)
[2018-04-01] MEDS: MULTIVITAMIN (CENTRUM) TABLET PO SCH (09:19)
[2018-04-01] MEDS: ASPIRIN EC 81 MG TABLET PO SCH (09:19)
[2018-04-01] MEDS: PANTOPRAZOLE 40 MG TABLET PO SCH (09:20)
[2018-04-01] MEDS: ENOXAPARIN 80 MG/0.8 ML SYRINGE SUBCUT SCH ×2 (09:20→20:54)
[2018-04-01] MEDS: THIAMINE 100 MG TABLET PO SCH (09:20)
[2018-04-01] MEDS: ISOSORBIDE MONONITRATE 30 MG TABLET PO SCH (09:20)
[2018-04-01] MEDS: levETIRAcetam 500 MG TABLET PO SCH ×2 (09:20→20:54)
[2018-04-01] MEDS: FOLIC ACID 1 MG TABLET PO SCH (09:20)
[2018-04-01] MEDS: FERROUS SULFATE 325 MG TABLET PO SCH (09:20)
[2018-04-01] MEDS: DEXAMETHASONE 4 MG TABLET PO SCH ×2 (09:20→20:55)
[2018-04-01] MEDS: amLODIPine 5 MG TABLET PO SCH (09:21)
[2018-04-01] MEDS: WARFARIN 5 MG TABLET PO SCH (17:10)
[2018-04-01] MEDS: METOPROLOL SUCCINATE XL 25 MG TABLET PO SCH (17:11)
[2018-04-01] MEDS: ROSUVASTATIN 10 MG TABLET PO SCH (20:55)
[2018-04-02] MEDS: ALBUTEROL/IPRATROPIUM 3 ML NEB RESP TX SCH ×4 (00:20→19:46)
[2018-04-02 05:51] LABS: INR 1.3; PT Patient Result 13.4 SECS
[2018-04-02 05:59] LABS: Calcium 8.8 MG/DL (8.5-10.1); Osmolality,Calculated 278.7 MOS/KG (273-304); Potassium 4.3 MMOL/L (3.5-5.1)
[2018-04-02] MEDS: PANTOPRAZOLE 40 MG TABLET PO SCH (09:05)
[2018-04-02] MEDS: METOPROLOL SUCCINATE XL 25 MG TABLET PO SCH (09:05)
[2018-04-02] MEDS: DEXAMETHASONE 4 MG TABLET PO SCH ×2 (09:05→22:32)
[2018-04-02] MEDS: FERROUS SULFATE 325 MG TABLET PO SCH (09:06)
[2018-04-02] MEDS: amLODIPine 5 MG TABLET PO SCH (09:06)
[2018-04-02] MEDS: levETIRAcetam 500 MG TABLET PO SCH ×2 (09:06→22:32)
[2018-04-02] MEDS: MULTIVITAMIN (CENTRUM) TABLET PO SCH (09:06)
[2018-04-02] MEDS: ISOSORBIDE MONONITRATE 30 MG TABLET PO SCH (09:06)
[2018-04-02] MEDS: ASPIRIN EC 81 MG TABLET PO SCH (09:06)
[2018-04-02] MEDS: THIAMINE 100 MG TABLET PO SCH (09:06)
[2018-04-02] MEDS: FOLIC ACID 1 MG TABLET PO SCH (09:06)
[2018-04-02] MEDS: WARFARIN 5 MG TABLET PO SCH (19:01)
[2018-04-02] MEDS: ENOXAPARIN 80 MG/0.8 ML SYRINGE SUBCUT SCH (19:01)
[2018-04-02] MEDS: ROSUVASTATIN 10 MG TABLET PO SCH (22:32)
[2018-04-03] MEDS: ALBUTEROL/IPRATROPIUM 3 ML NEB RESP TX SCH ×4 (01:47→19:50)
[2018-04-03 05:57] LABS: Basophils % 0.2 % (0.0-0.8); Hematocrit 33.2 VOL% (42.0-52.0); Hemoglobin 10.7 GM/DL (14.0-18.0); Immature Granulocytes % 4.8 %; Immature Granulocytes Absolute 0.57 #; Lymphocytes % 8.5 % (21.2-54.2); Mean Corpuscular HGB Conc 32.2 GM/DL (32-36); Mean Corpuscular Hemoglobin 32 PG (27-34); Mean Platelet Volume 10.6 FL (9.6-12.0); Monocytes # 0.6 10*3/uL (0.11-0.8); Monocytes % 4.9 % (1.7-12.7); Neutrophils # 9.8 10*3/uL (1.4-7.4); Neutrophils % 81.6 % (38.7-73.9); Platelet Count 287 T/CUMM (130-400); Red Blood Count 3.32 MC/CUMM (3.8-5.5); Red Cell Distribution Width 14.3 % (9.3-17.3); White Blood Count 11.9 T/CUMM (4-12)
[2018-04-03] MEDS: ENOXAPARIN 80 MG/0.8 ML SYRINGE SUBCUT SCH ×2 (06:10→17:21)
[2018-04-03 06:17] LABS: Osmolality,Calculated 268.4 MOS/KG (273-304); Potassium 5.1 MMOL/L (3.5-5.1)
[2018-04-03 07:07] LABS: INR 1.4; PT Patient Result 14.1 SECS
[2018-04-03] MEDS ORDERED: SODIUM CHLORIDE 0.9% 1,000 ML IV SCH (11:30)
[2018-04-03 11:35] LABS: Band Neutrophils 2 % (0-10); Eosinophils 1 % (0-10); Lymphocytes 9 % (20-55); Platelet Estimate Normal; Polychromasia Slight; Segmented Neutrophils 82 % (50-85); Total Cells Counted 100
[2018-04-03] MEDS: MULTIVITAMIN (CENTRUM) TABLET PO SCH (11:45)
[2018-04-03] MEDS: FOLIC ACID 1 MG TABLET PO SCH (11:45)
[2018-04-03] MEDS: levETIRAcetam 500 MG TABLET PO SCH ×2 (11:45→20:30)
[2018-04-03] MEDS: PANTOPRAZOLE 40 MG TABLET PO SCH (11:46)
[2018-04-03] MEDS: ISOSORBIDE MONONITRATE 30 MG TABLET PO SCH (11:46)
[2018-04-03] MEDS: METOPROLOL SUCCINATE XL 25 MG TABLET PO SCH (11:46)
[2018-04-03] MEDS: amLODIPine 5 MG TABLET PO SCH (11:46)
[2018-04-03] MEDS: ASPIRIN EC 81 MG TABLET PO SCH (11:46)
[2018-04-03] MEDS: FERROUS SULFATE 325 MG TABLET PO SCH (11:46)
[2018-04-03] MEDS: THIAMINE 100 MG TABLET PO SCH (11:46)
[2018-04-03] MEDS: DEXAMETHASONE 4 MG TABLET PO SCH ×2 (11:47→20:30)
[2018-04-03] MEDS: WARFARIN 5 MG TABLET PO SCH (17:21)
[2018-04-03] MEDS: ROSUVASTATIN 10 MG TABLET PO SCH (20:30)
[2018-04-04] MEDS: ALBUTEROL/IPRATROPIUM 3 ML NEB RESP TX SCH ×4 (00:05→19:58)
[2018-04-04 05:12] LABS: Calcium 8.8 MG/DL (8.5-10.1)
[2018-04-04 05:13] LABS: Osmolality,Calculated 282.7 MOS/KG (273-304)
[2018-04-04] MEDS: ENOXAPARIN 80 MG/0.8 ML SYRINGE SUBCUT SCH ×2 (05:40→18:41)
[2018-04-04 07:38] LABS: INR 1.4; PT Patient Result 15.1 SECS
[2018-04-04] MEDS: PANTOPRAZOLE 40 MG TABLET PO SCH (08:30)
[2018-04-04] MEDS: ASPIRIN EC 81 MG TABLET PO SCH (08:30)
[2018-04-04] MEDS: MULTIVITAMIN (CENTRUM) TABLET PO SCH (08:30)
[2018-04-04] MEDS: METOPROLOL SUCCINATE XL 25 MG TABLET PO SCH (08:30)
[2018-04-04] MEDS: DEXAMETHASONE 4 MG TABLET PO SCH ×2 (08:30→20:22)
[2018-04-04] MEDS: levETIRAcetam 500 MG TABLET PO SCH ×2 (08:30→20:22)
[2018-04-04] MEDS: amLODIPine 5 MG TABLET PO SCH (08:31)
[2018-04-04] MEDS: THIAMINE 100 MG TABLET PO SCH (08:31)
[2018-04-04] MEDS: FOLIC ACID 1 MG TABLET PO SCH (08:31)
[2018-04-04] MEDS: FERROUS SULFATE 325 MG TABLET PO SCH (08:31)
[2018-04-04] MEDS: ISOSORBIDE MONONITRATE 30 MG TABLET PO SCH (08:31)
[2018-04-04] MEDS: WARFARIN 5 MG TABLET PO SCH (18:41)
[2018-04-04] MEDS: ROSUVASTATIN 10 MG TABLET PO SCH (20:21)
[2018-04-05] MEDS: ALBUTEROL/IPRATROPIUM 3 ML NEB RESP TX SCH ×4 (01:13→19:19)
[2018-04-05] MEDS: ENOXAPARIN 80 MG/0.8 ML SYRINGE SUBCUT SCH ×2 (05:53→17:19)
[2018-04-05 06:42] LABS: Basophils % 0.1 % (0.0-0.8); Hematocrit 30.2 VOL% (42.0-52.0); Hemoglobin 9.7 GM/DL (14.0-18.0); Immature Granulocytes Absolute 0.58 #; Lymphocytes # 1.2 10*3/uL (1.4-4.0); Lymphocytes % 10.2 % (21.2-54.2); Mean Corpuscular HGB Conc 32.1 GM/DL (32-36); Mean Corpuscular Hemoglobin 33 PG (27-34); Mean Corpuscular Volume 103.4 FL (87-102); Mean Platelet Volume 11.1 FL (9.6-12.0); Monocytes # 0.6 10*3/uL (0.11-0.8); Monocytes % 5.2 % (1.7-12.7); NRBC # 0.02 10*3/uL; Neutrophils # 9.3 10*3/uL (1.4-7.4); Neutrophils % 79.5 % (38.7-73.9); Platelet Count 276 T/CUMM (130-400); Red Blood Count 2.92 MC/CUMM (3.8-5.5); White Blood Count 11.7 T/CUMM (4-12)
[2018-04-05 07:09] LABS: Calcium 8.5 MG/DL (8.5-10.1); Osmolality,Calculated 282.5 MOS/KG (273-304); Potassium 3.8 MMOL/L (3.5-5.1)
[2018-04-05 07:16] LABS: Band Neutrophils 1 % (0-10); Hypochromasia 1+; Lymphocytes 15 % (20-55); Platelet Estimate Adequate; Segmented Neutrophils 77 % (50-85); Total Cells Counted 100
[2018-04-05] MEDS: levETIRAcetam 500 MG TABLET PO SCH ×2 (10:51→20:51)
[2018-04-05] MEDS: FERROUS SULFATE 325 MG TABLET PO SCH (10:51)
[2018-04-05] MEDS: amLODIPine 5 MG TABLET PO SCH (10:51)
[2018-04-05] MEDS: METOPROLOL SUCCINATE XL 25 MG TABLET PO SCH (10:51)
[2018-04-05] MEDS: PANTOPRAZOLE 40 MG TABLET PO SCH (10:51)
[2018-04-05] MEDS: THIAMINE 100 MG TABLET PO SCH (10:51)
[2018-04-05] MEDS: DEXAMETHASONE 4 MG TABLET PO SCH ×2 (10:51→20:51)
[2018-04-05] MEDS: FOLIC ACID 1 MG TABLET PO SCH (10:51)
[2018-04-05] MEDS: MULTIVITAMIN (CENTRUM) TABLET PO SCH (10:51)
[2018-04-05] MEDS: ISOSORBIDE MONONITRATE 30 MG TABLET PO SCH (10:51)
[2018-04-05] MEDS: ASPIRIN EC 81 MG TABLET PO SCH (11:13)
[2018-04-05] MEDS: WARFARIN 5 MG TABLET PO SCH (17:19)
[2018-04-05] MEDS: ROSUVASTATIN 10 MG TABLET PO SCH (20:51)
[2018-04-06] MEDS: ALBUTEROL/IPRATROPIUM 3 ML NEB RESP TX SCH ×4 (00:07→19:30)
[2018-04-06] MEDS: ENOXAPARIN 80 MG/0.8 ML SYRINGE SUBCUT SCH ×2 (05:38→18:28)
[2018-04-06] MEDS: DEXAMETHASONE 4 MG TABLET PO SCH ×2 (09:54→22:12)
[2018-04-06] MEDS: PANTOPRAZOLE 40 MG TABLET PO SCH (09:54)
[2018-04-06] MEDS: ASPIRIN EC 81 MG TABLET PO SCH (09:54)
[2018-04-06] MEDS: METOPROLOL SUCCINATE XL 25 MG TABLET PO SCH (09:54)
[2018-04-06] MEDS: ISOSORBIDE MONONITRATE 30 MG TABLET PO SCH (09:54)
[2018-04-06] MEDS: amLODIPine 5 MG TABLET PO SCH (09:55)
[2018-04-06] MEDS: MULTIVITAMIN (CENTRUM) TABLET PO SCH (09:55)
[2018-04-06] MEDS: levETIRAcetam 500 MG TABLET PO SCH ×2 (09:55→22:12)
[2018-04-06] MEDS: FERROUS SULFATE 325 MG TABLET PO SCH (09:55)
[2018-04-06] MEDS: THIAMINE 100 MG TABLET PO SCH (09:55)
[2018-04-06] MEDS: FOLIC ACID 1 MG TABLET PO SCH (09:55)
[2018-04-06] MEDS: WARFARIN 5 MG TABLET PO SCH (18:28)
[2018-04-06] MEDS: ROSUVASTATIN 10 MG TABLET PO SCH (22:12)
[2018-04-07] MEDS: ALBUTEROL/IPRATROPIUM 3 ML NEB RESP TX SCH ×4 (00:11→19:18)
[2018-04-07 05:20] LABS: Basophils % 0.1 % (0.0-0.8); Eosinophils % 0.1 % (0.00-10.9); Hematocrit 31.8 VOL% (42.0-52.0); Hemoglobin 10.4 GM/DL (14.0-18.0); Immature Granulocytes % 3.7 %; Immature Granulocytes Absolute 0.53 #; Lymphocytes # 1.1 10*3/uL (1.4-4.0); Lymphocytes % 7.6 % (21.2-54.2); Mean Corpuscular HGB Conc 32.7 GM/DL (32-36); Mean Corpuscular Hemoglobin 33 PG (27-34); Mean Corpuscular Volume 101.6 FL (87-102); Mean Platelet Volume 11.3 FL (9.6-12.0); Monocytes # 0.6 10*3/uL (0.11-0.8); Monocytes % 4.2 % (1.7-12.7); Neutrophils # 12.1 10*3/uL (1.4-7.4); Neutrophils % 84.3 % (38.7-73.9); Platelet Count 311 T/CUMM (130-400); Red Blood Count 3.13 MC/CUMM (3.8-5.5); Red Cell Distribution Width 14.2 % (9.3-17.3); White Blood Count 14.4 T/CUMM (4-12)
[2018-04-07] MEDS: ENOXAPARIN 80 MG/0.8 ML SYRINGE SUBCUT SCH ×2 (05:48→17:10)
[2018-04-07 05:54] LABS: Osmolality,Calculated 285.5 MOS/KG (273-304); Potassium 3.8 MMOL/L (3.5-5.1)
[2018-04-07 06:01] LABS: Band Neutrophils 1 % (0-10); Hypochromasia 1+; Lymphocytes 8 % (20-55); Platelet Estimate Adequate; Segmented Neutrophils 87 % (50-85); Total Cells Counted 100
[2018-04-07 07:23] LABS: INR 1.3; PT Patient Result 13.9 SECS
[2018-04-07] MEDS: METOPROLOL SUCCINATE XL 25 MG TABLET PO SCH (09:49)
[2018-04-07] MEDS: MULTIVITAMIN (CENTRUM) TABLET PO SCH (09:49)
[2018-04-07] MEDS: PANTOPRAZOLE 40 MG TABLET PO SCH (09:49)
[2018-04-07] MEDS: FOLIC ACID 1 MG TABLET PO SCH (09:49)
[2018-04-07] MEDS: amLODIPine 5 MG TABLET PO SCH (09:49)
[2018-04-07] MEDS: levETIRAcetam 500 MG TABLET PO SCH ×2 (09:49→20:08)
[2018-04-07] MEDS: THIAMINE 100 MG TABLET PO SCH (09:49)
[2018-04-07] MEDS: ASPIRIN EC 81 MG TABLET PO SCH (09:50)
[2018-04-07] MEDS: ISOSORBIDE MONONITRATE 30 MG TABLET PO SCH (09:50)
[2018-04-07] MEDS: DEXAMETHASONE 4 MG TABLET PO SCH ×2 (09:50→20:08)
[2018-04-07] MEDS: FERROUS SULFATE 325 MG TABLET PO SCH (09:50)
[2018-04-07] MEDS: WARFARIN 5 MG TABLET PO SCH (17:10)
[2018-04-07] MEDS: ROSUVASTATIN 10 MG TABLET PO SCH (20:08)
[2018-04-08] MEDS: ALBUTEROL/IPRATROPIUM 3 ML NEB RESP TX SCH ×2 (00:37→07:08)
[2018-04-08] MEDS: ENOXAPARIN 80 MG/0.8 ML SYRINGE SUBCUT SCH (05:29)
[2018-04-08 07:42] VITALS: BP 141/69
[2018-04-08] MEDS: levETIRAcetam 500 MG TABLET PO SCH (08:50)
[2018-04-08] MEDS: METOPROLOL SUCCINATE XL 25 MG TABLET PO SCH (08:50)
[2018-04-08] MEDS: amLODIPine 5 MG TABLET PO SCH (08:50)
[2018-04-08] MEDS: PANTOPRAZOLE 40 MG TABLET PO SCH (08:51)
[2018-04-08] MEDS: ASPIRIN EC 81 MG TABLET PO SCH (08:51)
[2018-04-08] MEDS: THIAMINE 100 MG TABLET PO SCH (08:51)
[2018-04-08] MEDS: DEXAMETHASONE 4 MG TABLET PO SCH (08:51)
[2018-04-08] MEDS: FOLIC ACID 1 MG TABLET PO SCH (08:51)
[2018-04-08] MEDS: FERROUS SULFATE 325 MG TABLET PO SCH (08:51)
[2018-04-08] MEDS: MULTIVITAMIN (CENTRUM) TABLET PO SCH (08:51)
[2018-04-08] MEDS: ISOSORBIDE MONONITRATE 30 MG TABLET PO SCH (08:51)
[2018-04-08 11:14] LABS: Apearance,Urine CLEAR (Clear); Bilirubin,Urine Negative (Negative); Blood, Urine Negative (Negative); Glucose,Urine (UA) Negative (Negative); Ketones,Urine Negative (Negative); Mucus,Urine Occasional /LPF (Occasional); Nitrite,Urine Negative (Negative); Protein,Urine Negative; RBC,Urine 1 /HPF (0-4); Squamous Epithelial Cell,Urine Occasional /HPF (0-10); Urine Color Yellow (Yellow); Urine Specific Gravity 1.011 (1.001-1.035); Urine Urobilinogen < 2.0 EU/DL (0.2-1.0); WBC,Urine 15 /HPF (0-6)
== END 2018-04-08 11:01 | disposition swing bed (61) | DRG 54 ==
LOC: EDUNIT# → EDBD → N.ED 14:09 → N.EDINP 17:15 → SUATTDRO 17:15 → N.4E 18:00
PROVIDERS: ADMIT Internal Medicine; ATTEND Internal Medicine

== ENCOUNTER 2018-04-12 10:07 | Inpatient (IN) ==
[2018-04-12] MEDS ORDERED: LORazepam 2 MG/1 ML VIAL IV STA (10:31)
[2018-04-12] MEDS ORDERED: DEXAMETHASONE 10 MG/1 ML VIAL IV STA (10:31)
[2018-04-12 11:14] LABS: Basophils % 0.2 % (0.0-0.8); Eosinophils % 0.2 % (0.00-10.9); Hematocrit 36.8 VOL% (42.0-52.0); Hemoglobin 12.2 GM/DL (14.0-18.0); Immature Granulocytes % 2.4 %; Immature Granulocytes Absolute 0.25 #; Lymphocytes # 1.6 10*3/uL (1.4-4.0); Lymphocytes % 15.8 % (21.2-54.2); Mean Corpuscular HGB Conc 33.2 GM/DL (32-36); Mean Corpuscular Hemoglobin 33 PG (27-34); Mean Corpuscular Volume 100.3 FL (87-102); Mean Platelet Volume 11.3 FL (9.6-12.0); Monocytes # 0.6 10*3/uL (0.11-0.8); Monocytes % 6.2 % (1.7-12.7); Neutrophils # 7.8 10*3/uL (1.4-7.4); Neutrophils % 75.2 % (38.7-73.9); Platelet Count 292 T/CUMM (130-400); Red Blood Count 3.67 MC/CUMM (3.8-5.5); Red Cell Distribution Width 13.4 % (9.3-17.3); White Blood Count 10.3 T/CUMM (4-12)
[2018-04-12 11:24] LABS: INR 1.5; PT Patient Result 15.4 SECS; Partial Thromboplastin Time 33.8 SECS (0-40)
[2018-04-12 11:53] LABS: Alanine Aminotransferase 37 U/L (16-61); Albumin 4.1 G/DL (3.4-5.0); Alkaline Phosphatase 107 U/L (45-117); Aspartate Amino Transferase 31 U/L (0-37); Blood Urea Nitrogen 29 MG/DL (7-18); Calcium 9.4 MG/DL (8.5-10.1); Glucose 96 MG/DL (74-106); Osmolality,Calculated 269.5 MOS/KG (273-304); Potassium 4.1 MMOL/L (3.5-5.1); Sodium 132 MMOL/L (136-145); Total Protein 8.1 G/DL (6.4-8.3)
[2018-04-12] MEDS ORDERED: ALBUTEROL/IPRATROPIUM 3 ML NEB RESP TX PRN (15:17)
[2018-04-12] MEDS ORDERED: MORPHINE 4 MG/1 ML VIAL IV PRN (17:15)
[2018-04-12] MEDS: LORazepam 2 MG/1 ML VIAL IV PRN ×2 (18:48→20:39)
[2018-04-12] MEDS: DEXAMETHASONE 4 MG/1 ML VIAL IV SCH (18:48)
[2018-04-12] MEDS: ALBUTEROL/IPRATROPIUM 3 ML NEB RESP TX SCH (20:05)
[2018-04-13] MEDS: LORazepam 2 MG/1 ML VIAL IV PRN ×4 (00:05→22:57)
[2018-04-13] MEDS: ALBUTEROL/IPRATROPIUM 3 ML NEB RESP TX SCH ×4 (00:38→19:14)
[2018-04-13] MEDS: DEXAMETHASONE 4 MG/1 ML VIAL IV SCH ×2 (06:39→17:35)
[2018-04-13] MEDS ORDERED: DEXAMETHASONE 4 MG TABLET PO SCH (09:00)
[2018-04-14] MEDS: ALBUTEROL/IPRATROPIUM 3 ML NEB RESP TX SCH ×3 (00:04→13:23)
[2018-04-14] MEDS: DEXAMETHASONE 4 MG/1 ML VIAL IV SCH ×2 (05:35→18:16)
[2018-04-14] MEDS: LORazepam 2 MG/1 ML VIAL IV PRN (08:44)
[2018-04-14 17:30] VITALS: BP 128/78
== END 2018-04-14 18:56 | disposition hospice, home (50) | DRG 64 ==
LOC: EDUNIT# → EDBD → N.ED 10:07 → N.EDINP 14:14 → N.4E 15:01
PROVIDERS: ADMIT Internal Medicine; ATTEND Internal Medicine